=== PATIENT | female | born 1985 | race Caucasian/White ===

== ENCOUNTER → 2016-11-26 | Outpatient (CLI) | payer OTHER ==
--- NOTE | 2016-11-26 13:49 | RAD ---
Lumbar spine, three views Indication: Chronic lower back pain Comparison: None Findings: Vertebral body heights and alignment are normal. No acute fracture or subluxation is identi fied. There is minimal degenerative disc disease and facet arthropathy at L5-S1. Remaining disc space s are maintained. SI joints are normal. Impression: Minimal degenerative changes of the lower lumbosacral spine. Reported By:
== END | disposition home or self-care (01) | DRG 552 ==
LOC: RAD 13:19
PROVIDERS: ATTEND Psychiatry & Neurology Neurology
DX: M54.5 Low back pain (principal); M51.36 Other intervertebral disc degeneration, lumbar region
CPT/HCPCS: 72100